=== PATIENT | female | born 1990 | race African-American/Black ===

== ENCOUNTER 2016-08-08 00:42 | Emergency (ER) | payer OTHER ==
[~2016-08-08] VITALS: Ht 167.6 cm; Wt 99.8 kg
[~2016-08-08 00:42] MED LIST: CLINDAMYCIN HC300 MG ORAL; IBUPROFEN600 MG ORAL; MIRALAX17 G2 ORAL; NKM; NORCO 5-325 TA1 EACH ORAL; SILVADENE20 GM TP
[2016-08-08] MEDS ORDERED: NKM (00:50)
[2016-08-08 01:25] VITALS: BP 132/92
[2016-08-08] MEDS ORDERED: AMITRIPTYLINE25 MG ORAL (01:30)
--- NOTE | 2016-08-08 01:30 | Emergency Room Report ---
History of Present Illness General Chief Complaint: Chest Pain Source: Patient Present Illness HPI This is a 25-year-old female with history of anxiety. She's not any medicine or seen a Dr. for it She presents with chief complaint of lightheaded, anxiety attack and chest pain. Worse when she noticed a. Denies any fever chills denies any nausea vomiting. No suicidal thought homicidal thought. No drugs. Allergies: Coded Allergies: PENICILLINS (Unverified Allergy, Unknown, 03/25/15) Patient History Past Medical History: see triage record, old chart reviewed Past Surgical History: none Pertinent Family History: none Social History: Denies: smoking Last Menstrual Period: on period Now: No : 0 Para: 0 Immunizations: other Reviewed Nursing Documentation: PMH: Agreed, PSxH: Agreed Review of Systems Eye: Denies: blurred vision, eye pain ENT: Denies: ear pain, nose congestion, throat swelling Respiratory: Reports: shortness of breath, Denies: cough Cardiovascular: Reports: chest pain, Denies: palpitations Gastrointestinal: Denies: abdominal pain, diarrhea, nausea, vomiting Musculoskeletal: Denies: back pain, joint pain Skin: Denies: rash Neurological: Denies: headache, numbness Endocrine: Denies: increased thirst, increased urine Hematologic/Lymphatic: Denies: easy bruising All Other Systems: negative except mentioned in HPI Physical Exam Vital Signs Date Time Temp Pulse Resp B/P Pulse Ox O2 Delivery O2 Flow Rate FiO2 08/08/16 00:45 98.6 88 18 132/92 99 Room Air vitals normal Sp02 EP Interpretation: reviewed, normal General Appearance: well appearing, no apparent distress, alert Head: normocephalic, atraumatic Eyes: bilateral eye EOMI, bilateral eye PERRL ENT: hearing grossly normal, normal pharynx Neck: full range of motion, supple, no meningismus Respiratory: chest non-tender, lungs clear, normal breath sounds Cardiovascular #1: regular rate, rhythm, no murmur Gastrointestinal: normal bowel sounds, non tender, no mass, no organomegaly, no bruit, non-distended Musculoskeletal: back normal, gait/station normal, normal range of motion Psychiatric: mood/affect normal Skin: warm/dry Medical Decision Making Diagnostic Impression: Primary Impression: Chest pain Qualified Codes: R07.9 - Chest pain, unspecified Additional Impression: Anxiety ER Course Patient presents with atypical chest pain from anxiety. We'll discharge home. Notice of ACS, PE, dissection to name a few. EKG Diagnostic Results Rate: normal Rhythm: NSR ST Segments: no acute changes Rhythm Strip Diag. Results EP Interpretation: yes Rate: 75 Rhythm: NSR, no PVC's, no ectopy Last Vital Signs Date Time Temp Pulse Resp B/P Pulse Ox O2 Delivery O2 Flow Rate FiO2 08/08/16 00:45 98.6 88 18 132/92 99 Room Air Status: improved Disposition: HOME, SELF-CARE Condition: Stable Scripts Amitriptyline HCl (ELAVIL*) 25 Mg Tablet 25 MG ORAL BEDTIME, #30 TAB Prov: ROSY BRAUN M.D. 08/08/16 Additional Instructions: Followup with your DrKristyn in 7 days. Return if symptom worsen. ROSY BRAUN M.D. Aug 08, 2016 01:30
[2016-08-08] MEDS: LORazepam 1mg tab ORAL ONE ×2 (01:34→01:37)
[2016-08-08 01:42] VITALS: BP 132/92
--- NOTE | 2016-08-16 12:59 | Cardiology Report ---
APPROVED REPORT EKG Measurement Heart [id number] Normal sinus rhythm with sinus arrhythmia Normal ECG
== END 2016-08-08 01:45 | disposition home or self-care (01) ==
LOC: EMR 00:58
DX: R07.9 Chest pain, unspecified (principal); F41.9 Anxiety disorder, unspecified; Z88.0 Allergy status to penicillin
CPT/HCPCS: 93005; 99283

== ENCOUNTER 2016-08-25 15:12 | Emergency (ER) | payer OTHER ==
[~2016-08-25] VITALS: Ht 167.6 cm; Wt 102.1 kg
[~2016-08-25 15:12] MED LIST changes: +AMITRIPTYLINE25 MG ORAL
[2016-08-25 15:56] VITALS: BP 128/83
[2016-08-25 16:09] LABS: APPEARANCE,URINE CLEAR; KETONES,URINE NEGATIVE (NEGATIVE); LEUKOCYTE ESTERASE ,URINE NEGATIVE (NEGATIVE); NITRITE,URINE NEGATIVE (NEGATIVE); PH,URINE 7 (4.5-8.0); PROTEIN,URINE NEGATIVE (NEGATIVE); UROBILINOGEN,URINE NORMAL MG/DL (0.0-1.0)
[2016-08-25] MEDS ORDERED: Lidocaine 2% Visc 15ml soln ORAL ONE (16:15)
[2016-08-25] MEDS ORDERED: Dicyclomine HCl 10mg/5ml oral soln ORAL ONE (16:15)
[2016-08-25] MEDS ORDERED: Mylanta II UD 30ml ORAL ONE (16:15)
--- NOTE | 2016-08-25 16:31 | Emergency Room Report ---
History of Present Illness General Chief Complaint: Abdominal Pain Source: Patient Present Illness HPI 25-year-old female presents emergency department complaining of 7/10 in severity right upper quadrant abdominal pain that radiates up into the substernal area times one day. Patient states onset was immediately after eating food. Patient reports some mild nausea in addition to lightheadedness. Patient denies vomiting, constipation, diarrhea, fevers, chills or recent blood in the stool. Patient denies dark tarry stools. Patient reports a history of anxiety which causes her to get chest pains. Patient initially thought her symptoms were anxiety and took her medication however it provided no relief. Patient states lightheadedness resolved after several seconds. Sensation continues to have abdominal pain which is constant in nature and sharp/burning in description, not relieved by her anxiety medication. She denies D&C, dysuria , frequency or rashes . Denies CP, Palpitations, LOC, AMS, dizziness, Changes in Vision, Sensation, paresthesias, or a sudden severe headache. Allergies: Coded Allergies: PENICILLINS (Unverified Allergy, Unknown, 03/25/15) Patient History Past Medical History: see triage record Past Surgical History: none Pertinent Family History: none Last Menstrual Period: 08/10/2016 Now: No : 0 Para: 0 Immunizations: UTD Reviewed Nursing Documentation: PMH: Agreed, PSxH: Agreed Nursing Documentation-PMH Past Medical History: No Stated History Review of Systems All Other Systems: negative except mentioned in HPI Physical Exam Vital Signs Date Time Temp Pulse Resp B/P Pulse Ox O2 Delivery O2 Flow Rate FiO2 08/25/16 15:41 98.6 80 16 128/83 100 Room Air Sp02 EP Interpretation: reviewed, normal General Appearance: no apparent distress, alert, GCS 15, non-toxic Head: normocephalic, atraumatic Eyes: bilateral eye PERRL, bilateral eye normal inspection ENT: hearing grossly normal, normal pharynx, no angioedema, normal voice Neck: full range of motion, supple/symm/no masses Respiratory: chest non-tender, lungs clear, normal breath sounds, speaking full sentences Cardiovascular #1: regular rate, rhythm, no edema Gastrointestinal: normal bowel sounds, soft, no guarding, no rebound, other - Mild RUQ and Epigastric TTP, Negative Oxford signs, Negative MacBurney's sign, Negative Rosvigns Sign, Negative Psoas, No Peritoneal signs. Rectal: deferred Genitourinary: normal inspection, no CVA tenderness Musculoskeletal: back normal, gait/station normal, normal range of motion, non- tender, no calf tenderness Neurologic: alert, oriented x3, responsive, motor strength/tone normal, sensory intact, speech normal Psychiatric: judgement/insight normal, memory normal, mood/affect normal, no suicidal/homicidal ideation Skin: normal color, no rash, warm/dry, well hydrated Lymphatic: no adenopathy Medical Decision Making PA Attestation Dr. Tovar is my supervising Physician whom patient management has been discussed with. Diagnostic Impression: Primary Impression: Gastritis Qualified Codes: K29.70 - Gastritis, unspecified, without bleeding ER Course 25-year-old female presents emergency department complaining of 7/10 in severity right upper quadrant abdominal pain that radiates up into the substernal area times one day. Patient states onset was immediately after eating food. Patient reports some mild nausea in addition to lightheadedness. Ddx considered but are not limited to Diverticulitis, acute appy, diarrhea,UC, PUD, GE, pancreatitis, gallstone, , UTI Vital signs: are WNL, pt. is afebrile H&PE are most consistent with gastritis ORDERS: -CBC, CMP,:no evidence of electrolyte abnormality, mild leukocytosis -lipase: WNL UA: WNL no evidence of infection -Urine Hcg: Negative. ED INTERVENTIONS: --- 150mg Zantac -4mg Zofran -GI Cocktail -d/w pt. proper follow with PCP, and to Return to ED with worsening, or new symptoms. DISCHARGE: At this time pt. is stable for d/c to home. Will provide printed patient care instructions, and any necessary prescriptions. Care plan and follow up instructions have been discussed with the patient prior to discharge. Labs Test 08/25/16 15:55 08/25/16 16:27 Urine Color Pale yellow Urine Appearance Clear Urine pH 7 (4.5-8.0) Urine Specific [place] 1.000 (1.005-1.035) Urine Protein Negative (NEGATIVE) Urine Glucose (UA) Negative (NEGATIVE) Urine Ketones Negative (NEGATIVE) Urine Occult Blood Negative (NEGATIVE) Urine Nitrite Negative (NEGATIVE) Urine Bilirubin Negative (NEGATIVE) Urine Urobilinogen Normal MG/DL (0.0-1.0) Urine Leukocyte Esterase Negative (NEGATIVE) Urine HCG, Qualitative Negative White Blood Count 11.8 K/UL (4.8-10.8) Red Blood Count 4.70 M/UL (4.20-5.40) Hemoglobin 11.4 G/DL (12.0-16.0) Hematocrit 36.7 % (37.0-47.0) Mean Corpuscular Volume 78 FL (80-99) Mean Corpuscular Hemoglobin 24.2 PG (27.0-31.0) Mean Corpuscular Hemoglobin Concent 30.9 G/DL (32.0-36.0) Red Cell Distribution Width 13.1 % (11.6-14.8) Platelet Count 449 K/UL (150-450) Mean Platelet Volume 7.4 FL (6.5-10.1) Neutrophils (%) (Auto) 69.6 % (45.0-75.0) Lymphocytes (%) (Auto) 19.4 % (20.0-45.0) Monocytes (%) (Auto) 8.0 % (1.0-10.0) Eosinophils (%) (Auto) 1.8 % (0.0-3.0) Basophils (%) (Auto) 1.1 % (0.0-2.0) Sodium Level 140 mEQ/L (135-145) Potassium Level 3.6 mEQ/L (3.4-4.9) Chloride Level 99 mEQ/L (98-107) Carbon Dioxide Level 25 mEQ/L (20-30) Anion Gap 16 (5-15) Blood Urea Nitrogen 6 mg/dL (7-23) Creatinine 0.9 mg/dL (0.5-0.9) Estimat Glomerular Filtration Rate > 60 mL/min (>60) Glucose Level 90 mg/dL (74-106) Calcium Level 9.1 mg/dL (8.6-10.2) Total Bilirubin 0.5 mg/dL (0.0-1.2) Aspartate Amino Transf (AST/SGOT) 16 U/L (5-40) Alanine Aminotransferase (ALT/SGPT) 6 U/L (3-33) Alkaline Phosphatase 77 U/L (35-104) Total Protein 7.6 g/dL (6.6-8.7) Albumin 4.2 g/dL (3.5-5.2) Globulin 3.4 g/dL Albumin/Globulin Ratio 1.2 (1.0-2.7) Lipase 30 U/L (< 60) Last Vital Signs Date Time Temp Pulse Resp B/P Pulse Ox O2 Delivery O2 Flow Rate FiO2 08/25/16 15:56 98.6 82 16 128/83 100 Room Air Disposition: HOME, SELF-CARE Condition: Stable Scripts Ondansetron Odt* (ZOFRAN ODT*) 4 Mg Tab.rapdis 4 MG ORAL Q6H Y for Nausea & Vomiting, #15 TAB Prov: Yanira Solomon 08/25/16 Ranitidine Hcl* (ZANTAC*) 150 Mg Tablet 150 MG ORAL TWICE A DAY for 30 Days, #60 TAB Prov: Yanira Soloomn 08/25/16 Referrals: [facility]ERR[facility] (PCP) Patient Instructions: Gastritis, Adult Additional Instructions: Take medications as directed. Follow up with PCP in 3-5 days Return sooner to ED if new symptoms occur, or current symptoms become worse. - Please note that this Emergency Department Report was dictated using [employer] waiter technology software, occasionally this can lead to erroneous entry secondary to interpretation by the dictation equipment. Yanira Solomon Aug 25, 2016 16:31
[2016-08-25 16:54] LABS: BASOPHILS % (AUTO) 1.1 % (0.0-2.0); EOSINOPHILS % (AUTO) 1.8 % (0.0-3.0); LYMPHOCYTES % (AUTO) 19.4 % (20.0-45.0); MEAN CORPUSCULAR HEMOGLOBIN 24.2 PG (27.0-31.0); MEAN CORPUSCULAR HGB CONC 30.9 G/DL (32.0-36.0); MEAN CORPUSCULAR VOLUME 78 FL (80-99); MEAN PLATELET VOLUME 7.4 FL (6.5-10.1); NEUTROPHILS % (AUTO) 69.6 % (45.0-75.0); PLATELET COUNT 449 K/UL (150-450); RED CELL DISTRIBUTION WIDTH 13.1 % (11.6-14.8); WHITE BLOOD COUNT 11.8 K/UL (4.8-10.8)
[2016-08-25 17:14] LABS: ALANINE AMINOTRANSFERASE 6 U/L (3-33); ALBUMIN/GLOBULIN RATIO 1.2 (1.0-2.7); ANION GAP 16 (5-15); ASPARTATE AMINO TRANSFERASE 16 U/L (5-40); CALCIUM 9.1 mg/dL (8.6-10.2); CARBON DIOXIDE 25 mEQ/L (20-30); CHLORIDE 99 mEQ/L (98-107); CREATININE 0.9 mg/dL (0.5-0.9); GLOMERULAR FILTRATION RATE > 60 mL/min (>60); HEMOLYSIS 4; LIPASE 30 U/L (< 60); POTASSIUM 3.6 mEQ/L (3.4-4.9); SODIUM 140 mEQ/L (135-145); TOTAL PROTEIN 7.6 g/dL (6.6-8.7)
[2016-08-25] MEDS ORDERED: ZOFRAN ODT4 MG ORAL (17:23)
[2016-08-25] MEDS ORDERED: ZANTAC150 MG ORAL (17:23)
[2016-08-25 17:35] VITALS: BP 128/83
== END 2016-08-25 17:37 | disposition home or self-care (01) ==
LOC: EMR 15:50
DX: K29.70 Gastritis, unspecified, without bleeding (principal); Z88.0 Allergy status to penicillin
CPT/HCPCS: 36415; 80053; 81003; 81025; 83690; 85025; 99284

== ENCOUNTER 2016-09-23 15:40 | Emergency (ER) | payer OTHER ==
[~2016-09-23] VITALS: Ht 167.6 cm; Wt 99.8 kg
[~2016-09-23 15:40] MED LIST changes: +ZANTAC150 MG ORAL; +ZOFRAN ODT4 MG ORAL
[2016-09-23 15:57] VITALS: BP 119/83
[2016-09-23] MEDS ORDERED: PROMETHAZINE-D118 ML ORAL (16:11)
[2016-09-23] MEDS ORDERED: ZITHROMAX250 MG ORAL (16:11)
--- NOTE | 2016-09-23 16:32 | Emergency Room Report ---
History of Present Illness General Chief Complaint: Upper Respiratory Illness Source: Patient Present Illness HPI The patient is a 26 year-old presenting with sore throat, cough, subjective fevers which began one week prior. The patient states sputum is yellow to green. The pain is described as an 8/10 dull ache it is worse with swallowing. The pain does not radiate . The patient denies any sick contacts or recent travel. The patient denies any other symptoms including N, V, SOB, wheezing, CP , rash, GRAY, neck pain/stiffness, GRAY Allergies: Coded Allergies: PENICILLINS (Unverified Allergy, Unknown, 03/25/15) Patient History Past Medical History: see triage record Pertinent Family History: none Last Menstrual Period: 09/13/16 Now: No Reviewed Nursing Documentation: PMH: Agreed, PSxH: Agreed Nursing Documentation-PMH Past Medical History: No Stated History Review of Systems All Other Systems: negative except mentioned in HPI Physical Exam Vital Signs Date Time Temp Pulse Resp B/P Pulse Ox O2 Delivery O2 Flow Rate FiO2 09/23/16 15:51 98.1 88 16 119/83 100 Room Air Sp02 EP Interpretation: reviewed, normal General Appearance: no apparent distress, alert, GCS 15, non-toxic Head: normocephalic, atraumatic Eyes: bilateral eye PERRL, bilateral eye normal inspection ENT: hearing grossly normal, no angioedema, normal voice, tonsillar swelling, pharyngeal erythema Neck: full range of motion, supple/symm/no masses Respiratory: chest non-tender, lungs clear, normal breath sounds, no respiratory distress, no wheezing, speaking full sentences Cardiovascular #1: regular rate, rhythm, no edema Musculoskeletal: back normal, gait/station normal, normal range of motion, non- tender Neurologic: alert, oriented x3, responsive, motor strength/tone normal, sensory intact, speech normal Psychiatric: judgement/insight normal, memory normal, mood/affect normal, no suicidal/homicidal ideation Skin: normal color, no rash, warm/dry, well hydrated Lymphatic: adenopathy - cervical Medical Decision Making PA Attestation Dr. Tovar is my supervising physician. Patient management was discussed with my supervising physician Diagnostic Impression: Primary Impression: Pharyngitis, acute ER Course The patient is a 26 year-old presenting with sore throat, cough, subjective fevers which began one week prior Differential diagnosis include but not limited to pharyngitis, sinusitis, AOM, bronchitis, PNA Physical exam: Vitals within normal limits. Afebrile. No apparent distress HEENT exam: There is bilateral tonsillar edema, erythema. No exudate. Uvula midline. Moist mucous membranes. There is bilateral cervical lymphadenopathy. Lungs are clear to auscultation bilaterally Skin is warm and dry. No rash The patient will be discharged home with a prescription for azithromycin and cough medication and is given ER precautions. Patient will followup with primary care Last Vital Signs Date Time Temp Pulse Resp B/P Pulse Ox O2 Delivery O2 Flow Rate FiO2 09/23/16 15:57 88 16 Room Air 09/23/16 15:57 98.1 119/83 100 Status: improved Disposition: HOME, SELF-CARE Condition: Improved Scripts D-Methorphan Hb/Prometh Hcl* (PROMETHAZINE-DM SYRUP*) 118 Ml Syrup 5 ML ORAL Q6H Y for For Cough, #118 ML 0 Refills Prov: SOY DONG 09/23/16 Azithromycin* (ZITHROMAX*) 250 Mg Tablet 250 MG ORAL DAILY, #6 TAB 0 Refills Take two tables once daily for 1 day, then one tablet once daily for 4 days. Prov: SOY DONG 09/23/16 Patient Instructions: Upper Respiratory Infection, Adult Additional Instructions: I discussed my findings with the patient. All questions and concerns have been answered. Treatment and medication compliance have been addressed. I advised the patient that they need to follow up with PMD in 3-5 days. Return to ED if pain remains or worsens, cough worsens or remains, you notice blood in your sputum, you notice wheezing, you experience a fever, or if needed for any reason. Patient verbalized understanding of discharge instructions. SOY DONG Sep 23, 2016 16:32
== END 2016-09-23 16:19 | disposition home or self-care (01) ==
LOC: EMR 16:14
DX: J02.9 Acute pharyngitis, unspecified (principal); Z88.0 Allergy status to penicillin
CPT/HCPCS: 99284

== ENCOUNTER 2016-10-07 12:04 | Emergency (ER) | payer OTHER ==
[~2016-10-07] VITALS: Ht 167.6 cm; Wt 99.8 kg
[~2016-10-07 12:04] MED LIST changes: +PROMETHAZINE-D118 ML ORAL; +ZITHROMAX250 MG ORAL
[2016-10-07] MEDS ORDERED: Methocarbamol 750mg tab ORAL ONE (12:45)
[2016-10-07] MEDS: Ketorolac 30mg Inj IM ONE ×2 (12:46→13:10)
--- NOTE | 2016-10-07 12:52 | Emergency Room Report ---
History of Present Illness General Chief Complaint: Pain Source: Patient Present Illness HPI The patient is a 26 old female presenting with right shoulder pain which began this morning. It is described as a 9/10 tightness and radiates down the right arm. The patient states that she awoke with this pain. Pain is worse with head movement and shoulder movement. The patient denies any numbness or tingling. Patient denies any known injury to this area. The pt denies other symptoms such as N, V, F, chills, GRAY, dizziness, neck pain/stiffness, photophobia, CP, SOB, cough Allergies: Coded Allergies: PENICILLINS (Unverified Allergy, Unknown, 03/25/15) Patient History Past Medical History: see triage record Pertinent Family History: none Last Menstrual Period: on period Reviewed Nursing Documentation: PMH: Agreed, PSxH: Agreed Nursing Documentation-PMH Past Medical History: No Stated History Review of Systems All Other Systems: negative except mentioned in HPI Physical Exam Vital Signs Date Time Temp Pulse Resp B/P Pulse Ox O2 Delivery O2 Flow Rate FiO2 10/07/16 12:24 98.1 86 16 113/76 98 Room Air Sp02 EP Interpretation: reviewed, normal General Appearance: no apparent distress, alert, GCS 15, non-toxic Head: normocephalic, atraumatic Eyes: bilateral eye PERRL, bilateral eye normal inspection ENT: hearing grossly normal, normal pharynx, no angioedema, normal voice Respiratory: chest non-tender, lungs clear, normal breath sounds, speaking full sentences Cardiovascular #1: regular rate, rhythm, no edema Musculoskeletal: back normal, gait/station normal, normal range of motion, non- tender, tender - TTP over R trapezius Neurologic: alert, oriented x3, responsive, motor strength/tone normal, sensory intact, speech normal Psychiatric: judgement/insight normal, memory normal, mood/affect normal, no suicidal/homicidal ideation Skin: normal color, no rash, warm/dry, well hydrated Lymphatic: no adenopathy Medical Decision Making PA Attestation Dr. Camejo is my supervising physician. Patient management was discussed with my supervising physician Diagnostic Impression: Primary Impression: Muscle spasm ER Course The patient is a 26 old female presenting with right shoulder pain which began this morning Ddx considered include but not limited to sprain/strain, muscle spasm, fracture , contusion Physical exam: Vitals are within normal limits for an apparent distress Neck: No midline tenderness. Full active range of motion. There is tenderness to palpation over the right trapezius Full AROM of shoulder. The pt is given toradol and robaxin for pain with good relief. Pt will be DE'ed home with prescription for motrin and robaxin and will use heat packs at home. ER precautions are given patient followup with PMD Last Vital Signs Date Time Temp Pulse Resp B/P Pulse Ox O2 Delivery O2 Flow Rate FiO2 10/07/16 12:24 98.1 86 16 113/76 98 Room Air Status: improved Disposition: HOME, SELF-CARE Condition: Improved Scripts Methocarbamol* (ROBAXIN-750*) 750 Mg Tablet 750 MG PO TID, #21 TAB 0 Refills Prov: SOY DONG 10/07/16 Ibuprofen* (MOTRIN*) 600 Mg Tablet 600 MG ORAL Q8H Y for For Pain, #30 TAB 0 Refills Prov: SOY DONG 10/07/16 Referrals: [facility],REFERRING (PCP) SOY DONG Oct 07, 2016 12:52
[2016-10-07] MEDS ORDERED: IBUPROFEN600 MG ORAL (13:23)
[2016-10-07] MEDS ORDERED: ROBAXIN-750750 MG PO (13:23)
[2016-10-07 13:31] VITALS: BP 127/89
== END 2016-10-07 13:32 | disposition home or self-care (01) ==
LOC: EMR 12:48
DX: M62.838 Other muscle spasm (principal); Z88.0 Allergy status to penicillin
CPT/HCPCS: 96372; 99284; J1885

== ENCOUNTER 2016-11-28 19:29 | Emergency (ER) | payer OTHER ==
[~2016-11-28] VITALS: Ht 167.6 cm; Wt 97.5 kg
[~2016-11-28 19:29] MED LIST changes: +ROBAXIN-750750 MG PO
[2016-11-28 20:05] VITALS: BP 133/84
[2016-11-28] MEDS ORDERED: Azithromycin 250mg tab ORAL ONE (20:15)
[2016-11-28] MEDS ORDERED: IBUPROFEN600 MG ORAL (20:55)
[2016-11-28] MEDS ORDERED: ZITHROMAX250 MG ORAL (20:55)
[2016-11-28 21:00] VITALS: BP 133/84
--- NOTE | 2016-11-28 21:13 | Emergency Room Report ---
History of Present Illness General Chief Complaint: Earache Source: Patient Present Illness [facility] The patient is a 26-year-old female presenting for right ear pain which began this morning. Pain is described as a 10 out of 10 dull ache and is now radiating to the throat and forehead. No known provoking or relieving factors. She denies any sick contacts recent travel. She denies any other symptoms including nausea, vomiting, fever, chills, rash, dizziness, cough Allergies: Coded Allergies: PENICILLINS (Unverified Allergy, Unknown, 03/25/15) Patient History Past Medical History: see triage record Pertinent Family History: none Last Menstrual Period: 2 WEEKS AGO Reviewed Nursing Documentation: PMH: Agreed, PSxH: Agreed Nursing Documentation-PMH Past Medical History: No Stated History Review of Systems All Other Systems: negative except mentioned in HPI Physical Exam Vital Signs Date Time Temp Pulse Resp B/P Pulse Ox O2 Delivery O2 Flow Rate FiO2 11/28/16 19:32 97.7 91 18 133/84 99 Room Air Sp02 EP Interpretation: reviewed, normal General Appearance: no apparent distress, alert, GCS 15, non-toxic Head: normocephalic, atraumatic Eyes: bilateral eye PERRL, bilateral eye normal inspection ENT: normal pharynx, no angioedema, normal voice, uvula midline, tonsillar swelling, other - R TM erythema and bulging Neck: full range of motion, supple/symm/no masses Respiratory: chest non-tender, lungs clear, normal breath sounds, speaking full sentences Cardiovascular #1: regular rate, rhythm, no edema Musculoskeletal: back normal, gait/station normal, normal range of motion, non- tender Neurologic: alert, oriented x3, responsive, motor strength/tone normal, sensory intact, speech normal Psychiatric: judgement/insight normal, memory normal, mood/affect normal, no suicidal/homicidal ideation Skin: normal color, no rash, warm/dry, well hydrated Lymphatic: no adenopathy Medical Decision Making PA Attestation Dr. Salas is my supervising physician. Patient management was discussed with my supervising physician Diagnostic Impression: Primary Impression: Otitis media Qualified Codes: H66.91 - Otitis media, unspecified, right ear ER Course The patient is a 26 old female presenting with right ear pain Differential diagnosis include but not limited to otitis externa, otitis media, mastoiditis, sinusitis, pharyngitis Physical exam: Vitals within normal limits. No apparent distress HEENT exam: There is R tympanic membrane erythema and bulging. External auditory canal unremarkable. No tenderness to palpation over tragus. No nasal discharge. + tonsillar edema. No erythema. No exudate Lungs are clear to auscultation bilaterally The patient will be discharged home with a prescription for azithromycin and will followup with pmd. ER precautions are given Last Vital Signs Date Time Temp Pulse Resp B/P Pulse Ox O2 Delivery O2 Flow Rate FiO2 11/28/16 20:56 97.7 11/28/16 20:05 87 18 133/84 99 Room Air Status: improved Disposition: HOME, SELF-CARE Condition: Improved Scripts Ibuprofen* (MOTRIN*) 600 Mg Tablet 600 MG ORAL Q8H Y for For Pain, #30 TAB 0 Refills Prov: SOY DONG 11/28/16 Azithromycin* (ZITHROMAX*) 250 Mg Tablet 250 MG ORAL DAILY, #6 TAB 0 Refills Take two tables once daily for 1 day, then one tablet once daily for 4 days. Prov: SOY DONG 11/28/16 Referrals: [facility] (PCP) Patient Instructions: Otitis Media, Adult Additional Instructions: I discussed my findings with the patient. All questions and concerns have been answered. Treatment and medication compliance have been addressed. I advised the patient that they need to follow up with PMD in 3-5 days. Return to ED if pain remains or worsens, cough worsens or remains, you notice blood in your sputum, you notice wheezing, you experience a fever, or if needed for any reason. Patient verbalized understanding of discharge instructions. SOY DONG November 28, 2016 21:13
== END 2016-11-28 21:00 | disposition home or self-care (01) ==
LOC: EMR 19:52
DX: H66.91 Otitis media, unspecified, right ear (principal); Z88.0 Allergy status to penicillin
CPT/HCPCS: 99284; Q0144

== ENCOUNTER 2017-04-10 21:55 | Emergency (ER) | payer OTHER ==
[~2017-04-10] VITALS: Ht 167.6 cm; Wt 95.3 kg
[2017-04-10 22:13] VITALS: BP 134/94
[2017-04-10] MEDS ORDERED: IBUPROFEN600 MG ORAL (22:23)
[2017-04-10] MEDS ORDERED: NEXAFED30 MG ORAL (22:23)
--- NOTE | 2017-04-10 22:24 | Emergency Room Report ---
History of Present Illness General Chief Complaint: Earache Source: Patient Present Illness HPI Is a 26-year-old female with no past medical history. She presents with right ear pain. This occur after she was working out at the gym. [place]win[place] fullness and throbbing nature to the right ear. Also a little bit on the left ear. No fever or chills. No runny nose. No congestion. Denies any other complaint. Pain is 7/10. Allergies: Coded Allergies: PENICILLINS (Unverified Allergy, Unknown, 03/25/15) Patient History Past Medical History: see triage record, old chart reviewed Past Surgical History: none Pertinent Family History: none Social History: Denies: smoking Last Menstrual Period: 04/10/17 Now: No : 0 Para: 0 Immunizations: other Reviewed Nursing Documentation: PMH: Agreed, PSxH: Agreed Nursing Documentation-PMH Past Medical History: No Stated History Review of Systems Eye: Denies: eye pain, blurred vision ENT: Reports: ear pain, Denies: nose congestion, throat swelling Respiratory: Denies: cough, shortness of breath Cardiovascular: Denies: chest pain, palpitations Gastrointestinal: Denies: abdominal pain, diarrhea, nausea, vomiting Musculoskeletal: Denies: back pain, joint pain Skin: Denies: rash Neurological: Denies: headache, numbness Endocrine: Denies: increased thirst, increased urine Hematologic/Lymphatic: Denies: easy bruising All Other Systems: negative except mentioned in HPI Physical Exam Vital Signs Date Time Temp Pulse Resp B/P (MAP) Pulse Ox O2 Delivery O2 Flow Rate FiO2 04/10/17 22:04 98.2 90 14 134/94 98 Room Air vitals normal Sp02 EP Interpretation: reviewed, normal General Appearance: well appearing, no apparent distress, alert Head: normocephalic, atraumatic Eyes: bilateral eye PERRL, bilateral eye EOMI ENT: hearing grossly normal, normal pharynx Neck: full range of motion, supple, no meningismus Respiratory: chest non-tender, lungs clear, normal breath sounds Cardiovascular #1: regular rate, rhythm, no murmur Gastrointestinal: normal bowel sounds, non tender, no mass, no organomegaly, no bruit, non-distended Musculoskeletal: back normal, gait/station normal, normal range of motion Psychiatric: mood/affect normal Skin: warm/dry Medical Decision Making Diagnostic Impression: Primary Impression: Earache, right ER Course Patient with ear pain. No evidence of infection. I suspect this may be secondary to increased pressure from exercise. No perforation. No foreign body. We'll discharge home. Last Vital Signs Date Time Temp Pulse Resp B/P (MAP) Pulse Ox O2 Delivery O2 Flow Rate FiO2 04/10/17 22:13 98.2 90 14 134/94 98 Room Air Status: improved Disposition: HOME, SELF-CARE Condition: Stable Scripts Pseudoephedrine Hcl* (NEXAFED*) 30 Mg Tablet 60 MG ORAL Q6H Y for congestion, #30 TAB Prov: ROSY BRAUN M.D. 04/10/17 Ibuprofen* (MOTRIN*) 600 Mg Tablet 600 MG ORAL Q8H Y for For Pain, #30 TAB 0 Refills Prov: ROSY BRAUN M.D. 04/10/17 Patient Instructions: Earache Additional Instructions: Followup with your Dr. in 7 days. Return if symptom worsen. ROSY BRAUN M.D. Apr 10, 2017 22:24
[2017-04-10 22:28] VITALS: BP 134/94
== END 2017-04-10 22:30 | disposition home or self-care (01) ==
LOC: EMR 22:19
DX: H92.01 Otalgia, right ear (principal); Z88.0 Allergy status to penicillin
CPT/HCPCS: 99284

== ENCOUNTER 2018-11-24 18:53 | Emergency (ER) | payer MEDICAID, OTHER ==
[~2018-11-24] VITALS: Ht 167.6 cm; Wt 90.7 kg
[~2018-11-24 18:53] MED LIST changes: +NEXAFED30 MG ORAL
[2018-11-24 19:00] VITALS: BP 126/84
--- NOTE | 2018-11-24 19:00 | NUR ---
ED Nurse Note: Patient walked into ED c/o sore throat for 3 days now, accompanied by generalized body pain, patient is actively coughing, presetns with a temp of 100.0. patient rates her pain a 10/10 in her throat which is aggravated by swallowing. patient is alert and oriented x4, ambulatory with a steady gait
[2018-11-24] MEDS ORDERED: NKM (19:07)
[2018-11-24] MEDS ORDERED: ALBUTEROL SULF8.5 GM INH (19:26)
[2018-11-24] MEDS ORDERED: ZITHROMAX250 MG ORAL (19:26)
[2018-11-24] MEDS ORDERED: PROMETHAZINE-C118 M1 ORAL (19:26)
[2018-11-24 19:32] VITALS: BP 126/84
--- NOTE | 2018-11-24 19:32 | NUR ---
ER DISCHARGE NOTE: Patient is cleared to be discharged per ERMD, pt is aox4, on room air, with stable vital signs. pt was given dc and prescription instructions, pt was able to verbalize understanding, pt id band removed. pt is able to ambulate with steady gait. pt took all belongings.
--- NOTE | 2018-11-24 22:12 | Emergency Room Report ---
History of Present Illness General Chief Complaint: Sore Throat Source: Patient Present Illness HPI 28-year-old female presents ED for evaluation. Complaining of sore throat and cough for the last 4 days. Cough is dry. Worsen night. Denies fevers or chills. Denies earache. Denies sick contacts or recent travel. No other aggravating relieving factors. Denies any other associated symptoms Allergies: Coded Allergies: PENICILLINS (Unverified Allergy, Unknown, 03/25/15) Patient History Past Medical History: none Past Surgical History: none Pertinent Family History: none Social History: Denies: smoking, alcohol use, drug use Last Menstrual Period: 11/01/18 Now: No Immunizations: UTD Reviewed Nursing Documentation: PMH: Agreed; PSxH: Agreed Nursing Documentation-PMH Past Medical History: No Stated History Review of Systems All Other Systems: negative except mentioned in HPI Physical Exam Vital Signs Date Time Temp Pulse Resp B/P (MAP) Pulse Ox O2 Delivery O2 Flow Rate FiO2 11/24/18 18:53 100.0 103 18 97 Room Air 11/24/18 19:00 126/84 Sp02 EP Interpretation: reviewed, normal General Appearance: no apparent distress, alert, GCS 15, non-toxic Head: normocephalic Eyes: bilateral eye normal inspection, bilateral eye PERRL ENT: hearing grossly normal, no angioedema, normal voice, TMs + canals normal, tonsillar swelling, pharyngeal erythema, tonsillar exudate Neck: normal inspection Respiratory: chest non-tender, lungs clear, normal breath sounds, speaking full sentences Cardiovascular #1: regular rate, rhythm, no edema Gastrointestinal: normal inspection Rectal: deferred Genitourinary: no CVA tenderness Musculoskeletal: normal inspection Neurologic: alert, oriented x3, responsive, motor strength/tone normal, sensory intact, speech normal Psychiatric: normal inspection Skin: normal inspection Lymphatic: normal inspection Medical Decision Making Diagnostic Impression: Primary Impression: Bronchitis Additional Impression: Tonsillitis ER Course Hospital Course 28-year-old female presents to ED complaining of sore throat + cough Differential diagnoses include: URI, pharyngitis, otitis media Clinical course Patient placed on stretcher. After initial history, physical exam reveals a young female in no acute distress. Bilateral TM unremarkable. There is tonsillar swelling with erythema + exudates. Noted lymphadenopathy. Discussed findings with patient. Consideration for tonsillitis and bronchitis. Has been told that she does require surgery to remove her tonsils but has declined so far. We'll prescribe antibiotics, cough medication, inhaler. Safe for discharge close outpatient follow-up. We'll provide referrals Diagnosis - tonsillitis, bronchtis Stable and discharged home with prescriptions for azithromycin, promethazine/ codeine, albuterol. Instructed to followup with PMD. return to ED if symptoms recur or worsen Last Vital Signs Date Time Temp Pulse Resp B/P (MAP) Pulse Ox O2 Delivery O2 Flow Rate FiO2 11/24/18 19:32 100.0 92 18 126/84 97 Room Air Status: improved Disposition: HOME, SELF-CARE Condition: Stable Scripts Codeine/Promethazine Hcl* (PROMETHAZINE-CODEINE SYRUP*) 118 Ml Syrup 5 ML ORAL Q6H PRN for For Cough, #118 ML 0 Refills Prov: Miko Salas MD 11/24/18 Albuterol Sulfate* (ALBUTEROL SULFATE MDI*) 8.5 Gm Hfa.aer.ad 2 PUFF INH Q6H, #1 EA 0 Refills Prov: Miko Salas MD 11/24/18 Azithromycin* (ZITHROMAX*) 250 Mg Tablet 250 MG ORAL DAILY, #6 TAB 0 Refills Take two tables once daily for 1 day, then one tablet once daily for 4 days. Prov: Miko Salas MD 11/24/18 Referrals: [facility] Patient Instructions: Tonsillitis Miko Salas MD November 24, 2018 22:12
== END 2018-11-24 19:55 | disposition home or self-care (01) ==
LOC: EMR 19:42
DX: J20.9 Acute bronchitis, unspecified (principal); J03.90 Acute tonsillitis, unspecified; Z88.0 Allergy status to penicillin
CPT/HCPCS: 99282

== ENCOUNTER 2019-05-19 15:28 | Emergency (ER) | payer MEDICAID ==
[~2019-05-19] VITALS: Ht 170.2 cm; Wt 90.7 kg
[~2019-05-19 15:28] MED LIST changes: +ALBUTEROL SULF8.5 GM INH; +PROMETHAZINE-C118 M1 ORAL
[2019-05-19 15:37] VITALS: BP 137/81
--- NOTE | 2019-05-19 15:45 | NUR ---
ED Nurse Note: Patient walked into Ed from home c/o sorethroat and right earache and headache for 3 days. patient is alert awake x4 ambulatory steady gait, breathing unlabored and even.
[2019-05-19] MEDS ORDERED: IBUPROFEN600 MG ORAL (15:50)
--- NOTE | 2019-05-19 15:56 | Emergency Room Report ---
History of Present Illness General Chief Complaint: Earache Source: Patient Present Illness HPI Disclaimer: Please note that this report is being documented using [employer] technology. This can lead to erroneous entry secondary to incorrect interpretation by the dictating instrument. HPI: 28-year-old female with no reported medical history presents for evaluation of sore throat and ear pain. Symptoms have been present 2 to 3 days. She notes pain with swallowing both solids and liquids as well as subjective swelling but denies any difficulty breathing. Denies cough or fevers. She reports a right-sided headache and right-sided ear pain as well. Denies tinnitus, changes in her hearing, vertiginous symptoms, drainage from the ear or swelling in the ear. Denies chest pain, nausea, vomiting, changes in her vision, eye pain or swelling. She has not taken any medications because she states she does not like to take medications. She is requesting steroids as she states this is helped her sore throat in the past. Originally, she was triaged is complaining of toe pain to but when I asked her about it she said " do not worry about it." PMH: Denies PSH: Denies Allergies: Penicillin Social Hx: Occasional alcohol use. Denies tobacco or drug use Allergies: Coded Allergies: PENICILLINS (Unverified Allergy, Unknown, 03/25/15) Patient History Last Menstrual Period: 05/03/19 Nursing Documentation-PMH Past Medical History: No Stated History Review of Systems All Other Systems: negative except mentioned in HPI Physical Exam Vital Signs Date Time Temp Pulse Resp B/P (MAP) Pulse Ox O2 Delivery O2 Flow Rate FiO2 05/19/19 15:37 99.0 85 18 137/81 (99) 99 Room Air General: Awake and alert, no acute distress HEENT: NC/AT. EOMI. tympanic membranes are pearly jolley, nonbulging with clear landmarks bilaterally. External auditory canals are nonedematous without exudates. No tenderness over the mastoids. Tonsils are 3+, nonedematous, nonerythematous, no exudate. Uvula is midline. Moist mucous membranes. Neck: Supple, trachea midline. No lymphadenopathy Cardiovascular: RRR. S1 and S2 normal. No murmur appreciated Resp: Normal work of breathing. No cough, wheezing or crackles appreciated Skin: Intact. No abrasions, laceration or rash over the exposed skin MSK: Normal tone and bulk. Moving all extremities. No obvious deformity. Neuro: Awake and alert. Mentating appropriately. Medical Decision Making Diagnostic Impression: Primary Impression: Pharyngitis Additional Impression: URI (upper respiratory infection) ER Course 28-year-old female presents for evaluation of several days sore throat and right -sided ear pain and headache. Likely, this is an upper respiratory infection though I see no signs of purulent tonsillitis or pharyngitis and no evidence of acute otitis media. Likely this a viral syndrome and should resolve over the next few days. She declined evaluation for a toe pain that she was originally triaged for. We will give a dose of prednisone in the emergency department as well as ibuprofen. She will be discharged on additional dose of ibuprofen for pain and swelling. She is comfortable with stable vital signs, afebrile and overall well-appearing. Do not believe she requires emergent labs or imaging at this time. She is safe to follow-up as an outpatient. Provided the names of clinics in the area that she can follow-up with as well as return precautions. Mom is present at bedside. They both understand agree with this treatment plan will be discharged home. Last Vital Signs Date Time Temp Pulse Resp B/P (MAP) Pulse Ox O2 Delivery O2 Flow Rate FiO2 05/19/19 15:37 99.0 85 18 137/81 (99) 99 Room Air Disposition: HOME, SELF-CARE Condition: Stable Scripts Ibuprofen* (MOTRIN*) 600 Mg Tablet 600 MG ORAL Q8H PRN for For Pain, #30 TAB 0 Refills Prov: Shekhar Anglin MD 05/19/19 Referrals: [facility] Patient Instructions: Upper Respiratory Infection, Adult, Pharyngitis, Easy-to- Read Additional Instructions: You are treated with a dose of steroids for throat pain and swelling in the emergency department. Continue to use ibuprofen every 6 hours for the next few days to help with swelling and pain. Return to the emergency department if you cannot swallow, difficulty with eating and drinking, develop high fevers, pain that cannot be controlled at home, sudden and severe headache or any other changes in your health. Follow-up with your doctor in the next 2 to 3 days for reevaluation. Return to the emergency department anytime with any new or worsening symptoms. Shekhar Anglin MD May 19, 2019 15:56
[2019-05-19 16:01] VITALS: BP 137/81
--- NOTE | 2019-05-19 16:02 | NUR ---
ER DISCHARGE NOTE: Patient is cleared to be discharged per ERMD DR UMANZOR, pt is aox4, on room air, with stable vital signs. pt was given dc and prescription instructions, pt was able to verbalize understanding, pt id band removed without complications. pt is able to ambulate with steady gait. pt took all belongings.
== END 2019-05-19 16:03 | disposition home or self-care (01) ==
LOC: EMR 15:45
DX: J02.9 Acute pharyngitis, unspecified (principal); J06.9 Acute upper respiratory infection, unspecified; Z88.0 Allergy status to penicillin
CPT/HCPCS: J7512; Z7502; 99282